=== PATIENT | male | born 1985 | race Caucasian/White ===

== ENCOUNTER 2017-07-16 02:27 | Outpatient (CLI) | payer MEDICAID | END 2017-07-16 02:28 | disposition EMS.NT | LOC: EMS 02:27 | PROVIDERS: ATTEND Surgery | DX: Z72.89 Other problems related to lifestyle (principal) ==

== ENCOUNTER 2017-10-13 12:42 | Outpatient (CLI) | payer MEDICAID | END 2017-10-13 12:43 | disposition critical access hospital (66) | LOC: EMS 12:42 | PROVIDERS: ATTEND Surgery | DX: R52 Pain, unspecified (principal); R11.2 Nausea with vomiting, unspecified; R19.7 Diarrhea, unspecified | CPT/HCPCS: A0425; A0427 ==

== ENCOUNTER 2017-10-13 13:04 | Emergency (ER) | payer MEDICAID ==
[2017-10-13] MEDS ORDERED: SODIUM CHLORIDE 0.9% 1,000 ML IV ONE ×2 (13:09→14:03)
[2017-10-13] MEDS ORDERED: LORazepam 2 MG/ML VIAL IVP STA ×2 (13:17→14:21)
[2017-10-13] MEDS ORDERED: KETOROLAC 60 MG/2 ML VIAL IVP STA (13:17)
--- NOTE | 2017-10-13 13:25 | ED Physician Documentation ---
History of Present Illness - Stated complaint Stated Complaint: WITHDRAWAL - Chief complaint Chief Complaint: General - History obtained from History obtained from: Patient, EMS - History of Present Illness Timing: Other (He has been using heroin and methamphetamines heavily for the last few months, he quit using 2 days ago and now has severe total body pain, some episodes of shaking and loose and incontinent bowels and chills.) Review of Systems Ten Systems: 10 systems reviewed and negative Constitutional: reports: Chills. denies: Fever Cardiac: reports: Chest pain / pressure Respiratory: denies: Dyspnea, Cough GI: reports: Abdominal Pain, Nausea, Diarrhea PD PAST MEDICAL HISTORY - Past Medical History Past Medical History: No Psych: Post traumatic stress disorder - Past Surgical History Past Surgical History: Yes General: Appendectomy Ortho: Other - Present Medications Home Medications: Ambulatory Orders Medication Instructions Recorded Confirmed Buprenorphine HCl/Naloxone HCl 16 mg ORAL DAILY 01/08/16 01/08/16 [Suboxone 8 mg-2 mg Sl Film] Ondansetron Odt [Zofran] 4 mg TL Q6H PRN #10 tablet 05/16/16 Prazosin [Minipress] 2 mg DAILY 05/16/16 05/16/16 - Allergies Allergies/Adverse Reactions: Allergies Allergy/AdvReac Type Severity Reaction Status Date / Time iodine Allergy Unknown Verified 05/16/16 10:55 venom-honey bee Allergy Unknown Verified 05/16/16 10:55 [bee venom (honey bee)] contrast Allergy Unknown Uncoded 01/08/16 17:57 - Social History Does the pt smoke?: Yes Smoking Status: Current every day smoker Does the pt drink ETOH?: No Does the pt have substance abuse?: No - Family History Family history: reports: Non contributory - Immunizations Immunizations are current?: Yes Immunizations: TDAP >10years/unknown - POLST Patient has POLST: No PD ED PE NORMAL - Vitals Vital signs reviewed: Yes - General General: Alert and oriented X 3, Other (He is cooperative, hypervigilant and writhing in pain) - HEENT HEENT: Other (Dilated pupils) - Neck Neck: Supple, no meningeal sign, No bony TTP - Cardiac Cardiac: RRR, No murmur - Respiratory Respiratory: No respiratory distress, Clear bilaterally - Abdomen Abdomen: Normal bowel sounds, Soft, Non tender - Back Back: No CVA TTP, No spinal TTP - Derm Derm: Normal color, Warm and dry - Neuro Neuro: Alert and oriented X 3 Eye Opening: Spontaneous Motor: Obeys Commands Verbal: Oriented GCS Score: 15 - Psych Psych: Normal mood, Normal affect Results - Vitals Vitals: Vital Signs - 24 hr 10/13/17 10/13/17 13:04 16:36 Temperature 36.9 C Heart Rate 96 74 Respiratory 24 16 Rate Blood Pressure 101/78 133/80 H O2 Saturation 100 100 Oxygen O2 Source Room air - Labs Labs: Laboratory Tests 10/13/17 10/13/17 10/13/17 13:14 13:34 13:39 WBC RBC Hgb Hct MCV MCH MCHC RDW Plt Count MPV Neut # Lymph # [place] # Eos # Baso # Absolute Nucleated RBC Nucleated RBC % Manual Slide Review RBC Morph Micro Appear Sodium 136 Potassium 2.4 L* Chloride 98 L Carbon Dioxide 24 Anion Gap 14.0 H BUN 9 Creatinine 0.9 Estimated GFR (MDRD) 98 Glucose 105 H Calcium 9.4 Magnesium 1.8 Urine Opiates Screen POSITIVE H Ur Oxycodone Screen NEGATIVE Urine Methadone Screen NEGATIVE Ur Propoxyphene Screen NEGATIVE Ur Barbiturates Screen NEGATIVE Ur Tricyclics Screen NEGATIVE Ur Phencyclidine Scrn NEGATIVE Ur Amphetamine Screen NEGATIVE U Methamphetamines Scrn NEGATIVE U Benzodiazepines Scrn NEGATIVE Urine Cocaine Screen NEGATIVE U Cannabinoids Screen POSITIVE H Ethyl Alcohol 10/13/17 10/13/17 10/13/17 13:39 13:39 16:53 WBC 21.4 H RBC 5.55 Hgb 15.3 Hct 45.4 MCV 81.7 MCH 27.6 MCHC 33.8 RDW 12.7 Plt Count 308 MPV 7.7 Neut # 16.6 H Lymph # 3.2 [place] # 1.5 H Eos # 0.0 Baso # 0.0 Absolute Nucleated RBC 0.00 Nucleated RBC % 0.0 Manual Slide Review Indicated RBC Morph Micro Appear 1+ ANISOCYTOSIS Sodium Potassium 3.5 Chloride Carbon Dioxide Anion Gap BUN Creatinine Estimated GFR (MDRD) Glucose Calcium Magnesium Urine Opiates Screen Ur Oxycodone Screen Urine Methadone Screen Ur Propoxyphene Screen Ur Barbiturates Screen Ur Tricyclics Screen Ur Phencyclidine Scrn Ur Amphetamine Screen U Methamphetamines Scrn U Benzodiazepines Scrn Urine Cocaine Screen U Cannabinoids Screen Ethyl Alcohol < 5.0 PD MEDICAL DECISION MAKING - ED course ED course: 32-year-old gentleman presents by ambulance in the flares of acute narcotic withdrawal. He was treated here with Ativan, Toradol, Bentyl, IV fluids. potassium was repleted aggressively and rechecked and back to normal. After meds he was much more comfortable appearing, was tolerating oral fluids and food. Social work saw him and gave him resources for outpatient detoxification. Departure - Departure Disposition: 01 Home, Self Care Clinical Impression: Heroin withdrawal, Dehydration, Hypokalemia
[2017-10-13] MEDS ORDERED: POTASSIUM CHLOR 10 MEQ/100 ML 10 MEQ/100 ML BAG IV ONE (13:54)
[2017-10-13] MEDS ORDERED: POTASSIUM BICARB 25 MEQ TABLET PO STA (13:54)
[2017-10-13 13:55] LABS: CALCIUM 9.4 mg/dL (8.5-10.3); CREATININE 0.9 mg/dL (0.6-1.2)
[2017-10-13] MEDS ORDERED: DICYCLOMINE 10 MG CAPSULE PO STA (14:21)
[2017-10-13 14:41] LABS: BASOPHILS % (AUTO) 0.2 %; EOSINOPHILS % (AUTO) 0.1 %; HGB - HEMOGLOBIN 15.3 g/dL (14.0-18.0); LYMPHOCYTES # (AUTO) 3.2 10^3/uL (1.5-3.5); LYMPHOCYTES % (AUTO) 15.1 %; MEAN CORPUSCULAR HEMOGLOBIN 27.6 pg (27.0-31.0); MEAN CORPUSCULAR HGB CONC 33.8 g/dL (32.0-36.0); MEAN CORPUSCULAR VOLUME 81.7 fL (80.0-94.0); MEAN PLATELET VOLUME 7.7 fL (7.4-11.4); MONOCYTES # (AUTO) 1.5 10^3/uL (0.0-1.0); NEUTROPHILS # (AUTO) 16.6 10^3/uL (1.5-6.6); NEUTROPHILS % (AUTO) 77.6 %; PLT - PLATELET COUNT 308 10^3/uL (130-450); RED BLOOD COUNT 5.55 10^6/uL (4.70-6.10); RED CELL DISTRIBUTION WIDTH 12.7 % (12.0-15.0); WHITE BLOOD COUNT 21.4 x10^3/uL (4.8-10.8)
[2017-10-13 14:55] LABS: RBC MORPHOLOGY (MULTIPLE) 1+ ANISOCYTOSIS (NORMAL)
[2017-10-13 16:07] LABS: MUDS CUTOFF CONCENTRATIONS CUTOFF CONC BELOW:
[2017-10-13 16:20] LABS: AMPHETAMINE SCREEN,URINE NEGATIVE (NEGATIVE); BENZODIAZEPINES SCREEN, URINE NEGATIVE (NEGATIVE); COCAINE SCREEN URINE NEGATIVE (NEGATIVE); METHADONE SCREEN, URINE NEGATIVE (NEGATIVE); METHAMPHETAMINES SCREEN, URINE NEGATIVE (NEGATIVE); OPIATE SCREEN, URINE POSITIVE (NEGATIVE); OXYCODONE SCREEN, URINE NEGATIVE (NEGATIVE); PROPOXYPHENE SCREEN, URINE NEGATIVE (NEGATIVE); TRICYCLIC ANTIDEPRESSANT,URINE NEGATIVE (NEGATIVE)
[2017-10-13 18:00] VITALS: BP 137/84
== END 2017-10-13 18:00 | disposition home or self-care (01) ==
LOC: EDUNIT# → ED 13:04
DX: F11.23 Opioid dependence with withdrawal (principal); E86.0 Dehydration; E87.6 Hypokalemia; F17.200 Nicotine dependence, unspecified, uncomplicated
CPT/HCPCS: 80048; 80306; 80320; 83735; 84132; 85025; 96361; 96365; 96366; 96375; 96376; 99283; 99284; A9270; J2060; 36415

== ENCOUNTER 2017-10-16 09:00 | Outpatient (CLI) | payer MEDICAID | END 2017-10-16 09:01 | disposition home or self-care (01) | LOC: LAB.N 09:00 | PROVIDERS: ATTEND Family Medicine | DX: F11.10 Opioid abuse, uncomplicated (principal); F11.93 Opioid use, unspecified with withdrawal; F15.10 Other stimulant abuse, uncomplicated | CPT/HCPCS: 36415; 80053; 80306; 84443; 85025; 86317; 86704; 86709; 86803; 87340; 87389 ==

== ENCOUNTER 2017-12-23 21:36 | Emergency (ER) | payer MEDICAID ==
--- NOTE | 2017-12-23 22:38 | ED Physician Documentation ---
History of Present Illness - Stated complaint Stated Complaint: Wants detox - Chief complaint Chief Complaint: MHE - History obtained from History obtained from: Patient - History of Present Illness Timing: Unknown - Additonal information Additional information: Per internet application developer, patient presents requesting detox from heroin and methamphetamines. By the time of my evaluation, patient is somnolent and cannot provide any contribution to HPI/ROS Review of Systems Unable to obtain: Other (UNABLE TO PROVIDE ROS ANSWERS ON INITIAL EXAM. THE ROS BELOW WAS OBTAINED TOWARDS THE END OF ED STAY WHEN PATIENT HAD BECOME AWAKE, ALERT, AND ORIENTED X 3) Constitutional: reports: Myalgias. denies: Fever Cardiac: reports: Reviewed and negative Respiratory: reports: Reviewed and negative GI: reports: Reviewed and negative Neurologic: denies: Headache PD PAST MEDICAL HISTORY - Past Medical History Psych: Post traumatic stress disorder - Past Surgical History Past Surgical History: Yes General: Appendectomy Ortho: Shoulder arthroplasty, Other - Present Medications Home Medications: Ambulatory Orders Medication Instructions Recorded Confirmed No Known Home Medications [No 12/23/17 12/23/17 Known Home Medications] - Allergies Allergies/Adverse Reactions: Allergies Allergy/AdvReac Type Severity Reaction Status Date / Time iodine Allergy Unknown Verified 12/23/17 21:47 venom-honey bee Allergy Unknown Verified 12/23/17 21:47 [bee venom (honey bee)] contrast Allergy Unknown Uncoded 12/23/17 21:47 - Social History Does the pt smoke?: Yes Smoking Status: Current every day smoker Does the pt drink ETOH?: No Does the pt have substance abuse?: Yes Substance Use and Type: Marijuana, Meth, Heroin - Immunizations Immunizations are current?: Yes Immunizations: TDAP >10years/unknown - POLST Patient has POLST: No PD ED PE NORMAL - Vitals Vital signs reviewed: Yes - HEENT HEENT: Moist mucous membranes - Neck Neck: Supple, no meningeal sign - Cardiac Cardiac: RRR, No murmur - Respiratory Respiratory: No respiratory distress, Clear bilaterally - Abdomen Abdomen: Soft, Non tender, Non distended - Derm Derm: Normal color, Warm and dry - Extremities Extremities: No edema - Neuro Eye Opening: To Pain Motor: Localizes to Pain Verbal: Incomprehensible GCS Score: 9 PD ED PE EXPANDED - General General: Lethargic - HEENT HEENT: Other (dilated pupils bilaterally but equal and reactive) Results - Vitals Vitals: Vital Signs - 24 hr 12/23/17 12/24/17 12/24/17 21:41 01:12 03:58 Temperature 36.6 C 36.3 C L Heart Rate 106 H 83 72 Respiratory 22 16 18 Rate Blood Pressure 124/83 H 141/83 H 117/71 O2 Saturation 99 99 100 12/24/17 09:02 Temperature 36.7 C Heart Rate 79 Respiratory 14 Rate Blood Pressure 127/82 H O2 Saturation 100 Oxygen O2 Source Room air - Labs Labs: Laboratory Tests 12/23/17 12/23/17 12/24/17 22:20 22:40 05:43 WBC 11.2 H RBC 5.02 Hgb 14.3 Hct 43.0 MCV 85.6 MCH 28.5 MCHC 33.3 RDW 13.1 Plt Count 267 MPV 7.1 L Neut # (Auto) 8.7 H Lymph # (Auto) 1.8 [place] # (Auto) 0.6 Eos # (Auto) 0.1 Baso # (Auto) 0.0 Absolute Nucleated RBC 0.01 Nucleated RBC % 0.0 Sodium 135 Potassium 3.9 Chloride 103 Carbon Dioxide 24 Anion Gap 8.0 BUN 9 Creatinine 0.7 Estimated GFR (MDRD) 132 Glucose 101 H Calcium 9.4 Total Bilirubin 0.7 AST 19 ALT 19 Alkaline Phosphatase 73 Total Protein 7.6 Albumin 4.4 Globulin 3.2 Albumin/Globulin Ratio 1.4 Lipase 21 L Urine Color YELLOW Urine Clarity CLEAR Urine pH 7.5 Ur Specific [place] 1.015 Urine Protein NEGATIVE Urine Glucose (UA) NEGATIVE Urine Ketones NEGATIVE Urine Occult Blood NEGATIVE Urine Nitrite NEGATIVE Urine Bilirubin NEGATIVE Urine Urobilinogen 0.2 (NORMAL) Ur Leukocyte Esterase NEGATIVE Ur Microscopic Review NOT INDICATED Urine Culture Comments NOT INDICATED Salicylates < 6.0 Urine Opiates Screen NEGATIVE Ur Oxycodone Screen NEGATIVE Urine Methadone Screen NEGATIVE Ur Propoxyphene Screen NEGATIVE Acetaminophen < 10 L Ur Barbiturates Screen NEGATIVE Ur Tricyclics Screen NEGATIVE Ur Phencyclidine Scrn NEGATIVE Ur Amphetamine Screen POSITIVE H U Methamphetamines Scrn NEGATIVE U Benzodiazepines Scrn NEGATIVE Urine Cocaine Screen NEGATIVE U Cannabinoids Screen POSITIVE H Ethyl Alcohol < 5.0 PD MEDICAL DECISION MAKING - ED course Complexity details: reviewed old records, reviewed results, re-evaluated patient , considered differential, d/w patient ED course: On my initial evaluation of patient, he was somnolent and could not stay awake long enough to provide any contribution to HPI/ROS. He did not follow any commands. He had brief episodes, lasting less than one minute, when he would suddenly appear agitated and uncomfortable, but he would rapidly fall back asleep. Early in his ED stay, he told me he was "seeing things that aren't there ", but could not stay awake long enough to elaborate. He remained somnolent for most of ED stay, but after approximately 8 hours, I was able to wake him up and he was oriented x 3 and answered questions intelligibly and accurately. His pupils are normal size (no longer dilated) and equal and reactive. He tells me he drove to ED. He says he last used both heroin and methamphetamines approximately 24 hours ago (this discussion was at 7 AM , 12/24/17). He tells me that he wants to get into a detox program at this time. SW consulted and they were able to arrange for intake at [facility] in [place]. I then discussed the case with staff (Ankush) at [facility], he requests that I call prescriptions to [facility] in [place]. As per our discussion, I called in prescriptions for trazadone 50mg 1 tablet PO QHS PRN sleep, hydroxyzine 25 mg 1-2 tablets PO Q8 hours, and lorazepam taper 1mg Day 1: 1 tab PO Q6 hours, day 2: 1 tab PO Q8 hours, Day 3: 1 tab PO Q 12 hours. Patient's mother to drive him to the crisis center in [place]. Patient did not request nor require any medications during ED stay. He was in NAD during ED stay except for the brief period of appearing uncomfortable as noted above (he only had these episodes while he was somnolent) - Sepsis Event Vital Signs: Vital Signs - 24 hr 12/23/17 12/24/17 12/24/17 21:41 01:12 03:58 Temperature 36.6 C 36.3 C L Heart Rate 106 H 83 72 Respiratory 22 16 18 Rate Blood Pressure 124/83 H 141/83 H 117/71 O2 Saturation 99 99 100 12/24/17 09:02 Temperature 36.7 C Heart Rate 79 Respiratory 14 Rate Blood Pressure 127/82 H O2 Saturation 100 Oxygen O2 Source Room air Departure - Departure Disposition: 01 Home, Self Care Clinical Impression: Substance abuse Condition: Good Instructions: ED Drug Abuse General Comments: You are to go directly from this emergency department to the [facility] in [place], [place]. [address] [place] [address] Medications have been called in to the pharmacy, and these will be filled by staff from the Crisis Center and dispensed to you as prescribed.
[2017-12-23 22:43] LABS: ALBUMIN 4.4 g/dL (3.2-5.5); ALBUMIN/GLOBULIN RATIO 1.4 (1.0-2.2); ALKALINE PHOSPHATASE 73 IU/L (42-121); ALT ALANINE AMINOTRANSFERASE 19 IU/L (10-60); AST ASPARTATE AMINOTRANSFERASE 19 IU/L (10-42); BILIRUBIN,TOTAL 0.7 mg/dL (0.2-1.0); BUN - BLOOD UREA NITROGEN 9 mg/dL (6-20); CALCIUM 9.4 mg/dL (8.5-10.3); CARBON DIOXIDE - CO2 24 mmol/L (21-32); CHLORIDE 103 mmol/L (101-111); CREATININE 0.7 mg/dL (0.6-1.2); GFR - MDRD 132 (>89); GLUCOSE 101 mg/dL (70-100); LIPASE 21 U/L (22-51); SALICYLATE < 6.0 mg/dL; SODIUM 135 mmol/L (135-145); TOTAL PROTEIN 7.6 g/dL (6.7-8.2)
[2017-12-23 22:47] LABS: BASOPHILS % (AUTO) 0.4 %; EOSINOPHILS # (AUTO) 0.1 10^3/uL (0.0-0.7); EOSINOPHILS % (AUTO) 0.9 %; HGB - HEMOGLOBIN 14.3 g/dL (14.0-18.0); LYMPHOCYTES # (AUTO) 1.8 10^3/uL (1.5-3.5); LYMPHOCYTES % (AUTO) 15.6 %; MEAN CORPUSCULAR HEMOGLOBIN 28.5 pg (27.0-31.0); MEAN CORPUSCULAR HGB CONC 33.3 g/dL (32.0-36.0); MEAN CORPUSCULAR VOLUME 85.6 fL (80.0-94.0); MEAN PLATELET VOLUME 7.1 fL (7.4-11.4); MONOCYTES # (AUTO) 0.6 10^3/uL (0.0-1.0); MONOCYTES % (AUTO) 5.5 %; NEUTROPHILS # (AUTO) 8.7 10^3/uL (1.5-6.6); NEUTROPHILS % (AUTO) 77.6 %; PLT - PLATELET COUNT 267 10^3/uL (130-450); RED BLOOD COUNT 5.02 10^6/uL (4.70-6.10); RED CELL DISTRIBUTION WIDTH 13.1 % (12.0-15.0); WHITE BLOOD COUNT 11.2 x10^3/uL (4.8-10.8)
[2017-12-23 22:52] LABS: ACETAMINOPHEN < 10 ug/mL (10-30)
[2017-12-24 05:49] LABS: MUDS CUTOFF CONCENTRATIONS CUTOFF CONC BELOW:
[2017-12-24 05:53] LABS: BILIRUBIN,URINE NEGATIVE (NEGATIVE); GLUCOSE, URINE (UA) NEGATIVE (NEGATIVE); KETONES,URINE (UA) NEGATIVE (NEGATIVE); LEUKOCYTE ESTERASE, URINE NEGATIVE (NEGATIVE); NITRITE,URINE NEGATIVE (NEGATIVE); OCCULT BLOOD,URINE NEGATIVE (NEGATIVE); PH,URINE 7.5 PH (5.0-7.5); PROTEIN,URINE NEGATIVE (NEGATIVE); UROBILINOGEN,URINE 0.2 (NORMAL) E.U./dL (NORMAL)
[2017-12-24 05:55] LABS: CLARITY,URINE CLEAR (CLEAR)
[2017-12-24 06:06] LABS: AMPHETAMINE SCREEN,URINE POSITIVE (NEGATIVE); BENZODIAZEPINES SCREEN, URINE NEGATIVE (NEGATIVE); COCAINE SCREEN URINE NEGATIVE (NEGATIVE); METHADONE SCREEN, URINE NEGATIVE (NEGATIVE); METHAMPHETAMINES SCREEN, URINE NEGATIVE (NEGATIVE); OPIATE SCREEN, URINE NEGATIVE (NEGATIVE); OXYCODONE SCREEN, URINE NEGATIVE (NEGATIVE); PROPOXYPHENE SCREEN, URINE NEGATIVE (NEGATIVE); TRICYCLIC ANTIDEPRESSANT,URINE NEGATIVE (NEGATIVE)
[2017-12-24 09:03] VITALS: BP 127/82
== END 2017-12-24 09:19 | disposition home or self-care (01) ==
LOC: ED 21:36
DX: F15.10 Other stimulant abuse, uncomplicated (principal); F11.10 Opioid abuse, uncomplicated; F43.10 Post-traumatic stress disorder, unspecified; R44.0 Auditory hallucinations; M79.1 Myalgia; F17.200 Nicotine dependence, unspecified, uncomplicated; R53.83 Other fatigue
CPT/HCPCS: 36415; 80053; 80306; 80307; 80320; 80329; 81001; 81003; 83690; 84703; 85025; 87086; 99283; 99285

== ENCOUNTER 2018-02-13 12:16 | Emergency (ER) | payer MEDICAID ==
[2018-02-13] MEDS ORDERED: SODIUM CHLORIDE 0.9% 1,000 ML IV ONE (12:44)
[2018-02-13 13:51] LABS: BASOPHILS # (AUTO) 0.1 10^3/uL (0.0-0.1); BASOPHILS % (AUTO) 0.5 %; EOSINOPHILS # (AUTO) 0.1 10^3/uL (0.0-0.7); EOSINOPHILS % (AUTO) 0.7 %; HGB - HEMOGLOBIN 15.9 g/dL (14.0-18.0); LYMPHOCYTES # (AUTO) 2.8 10^3/uL (1.5-3.5); LYMPHOCYTES % (AUTO) 22.5 %; MEAN CORPUSCULAR HEMOGLOBIN 28.5 pg (27.0-31.0); MEAN CORPUSCULAR VOLUME 83.8 fL (80.0-94.0); MEAN PLATELET VOLUME 7.3 fL (7.4-11.4); MONOCYTES # (AUTO) 0.9 10^3/uL (0.0-1.0); MONOCYTES % (AUTO) 7.2 %; NEUTROPHILS # (AUTO) 8.5 10^3/uL (1.5-6.6); NEUTROPHILS % (AUTO) 69.1 %; PLT - PLATELET COUNT 273 10^3/uL (130-450); RED CELL DISTRIBUTION WIDTH 13.2 % (12.0-15.0); WHITE BLOOD COUNT 12.3 x10^3/uL (4.8-10.8)
[2018-02-13] MEDS ORDERED: LORazepam 2 MG/ML VIAL IVP STA (14:01)
[2018-02-13 14:07] LABS: ALBUMIN 4.2 g/dL (3.2-5.5); ALBUMIN/GLOBULIN RATIO 1.3 (1.0-2.2); BILIRUBIN,TOTAL 0.7 mg/dL (0.2-1.0); CALCIUM 9.1 mg/dL (8.5-10.3); CREATININE 0.7 mg/dL (0.6-1.2); MAGNESIUM 2.2 mg/dL (1.7-2.8); PHOSPHORUS 2.6 mg/dL (2.5-4.6); TOTAL PROTEIN 7.5 g/dL (6.7-8.2)
--- NOTE | 2018-02-13 14:10 | ED Physician Documentation ---
History of Present Illness - Stated complaint Stated Complaint: WEAKNESS,MUSCLE TWITCHING - Chief complaint Chief Complaint: General - History obtained from History obtained from: Patient - History of Present Illness Timing: How many days ago (2) - Additonal information Additional information: 32-year-old male with a history of substance abuse has recently been into detoxification and rehab. He got out of rehab on 16 January and immediately relapsed. The patient states that his girlfriend left after he relapsed and he is now living in a trailer in a friend's yard that he met [place]. He is using heroin and methamphetamine about half a gram per day and somewhat less than that of heroin. He last used 2 days ago and he has developed symptoms of withdrawal. He has had withdrawal symptoms a number of times previously and he reports he is unable to eat or drink anything currently. He is interested in detox and rehabilitation. Review of Systems Constitutional: reports: Chills, Myalgias, Fatigue, Sweats. denies: Fever Eyes: denies: Decreased vision Ears: denies: Ear pain Nose: denies: Rhinorrhea / runny nose, Congestion Throat: denies: Sore throat Cardiac: denies: Chest pain / pressure, Palpitations Respiratory: denies: Dyspnea, Cough GI: reports: Abdominal Pain, Nausea, Vomiting, Diarrhea : denies: Dysuria, Frequency Skin: denies: Rash Musculoskeletal: reports: Extremity pain. denies: Neck pain, Back pain Neurologic: reports: Generalized weakness. denies: Focal weakness, Numbness PD PAST MEDICAL HISTORY - Past Medical History Past Medical History: Yes Psych: Post traumatic stress disorder - Past Surgical History Past Surgical History: Yes General: Appendectomy Ortho: Shoulder arthroplasty, Other - Present Medications Home Medications: Ambulatory Orders Medication Instructions Recorded Confirmed Lorazepam [Ativan] 1 mg PO Q6HR PRN #20 tablet 02/13/18 hydrOXYzine pamoate [Hydroxyzine 25 - 50 mg PO Q8HR PRN #20 capsule 02/13/18 Pamoate] traZODone [Desyrel] 50 mg PO HS #10 tablet 02/13/18 - Allergies Allergies/Adverse Reactions: Allergies Allergy/AdvReac Type Severity Reaction Status Date / Time iodine Allergy Unknown Verified 12/23/17 21:47 venom-honey bee Allergy Unknown Verified 12/23/17 21:47 [bee venom (honey bee)] contrast Allergy Unknown Uncoded 12/23/17 21:47 - Social History Does the pt smoke?: Yes Smoking Status: Current every day smoker Does the pt drink ETOH?: No Does the pt have substance abuse?: Yes - Immunizations Immunizations are current?: Yes Immunizations: TDAP >10years/unknown - POLST Patient has POLST: No PD ED PE NORMAL - Vitals Vital signs reviewed: Yes (normal ) - General General: Alert and oriented X 3, Well developed/nourished, Other (The patient is shaking but able to communicate adequately. He does not appear acutely intoxicated. ) - HEENT HEENT: Atraumatic, PERRL, EOMI - Neck Neck: Supple, no meningeal sign, No bony TTP - Cardiac Cardiac: RRR, No murmur - Respiratory Respiratory: No respiratory distress, Clear bilaterally - Abdomen Abdomen: Soft, Non tender - Derm Derm: Normal color, Warm and dry, No rash - Extremities Extremities: No deformity, No edema, Other (There are track soriano over the left forearm and the veins are hard/sclerosed. ) - Neuro Neuro: Alert and oriented X 3, equity director 2-12 intact, No motor deficit, No sensory deficit, Normal speech Eye Opening: Spontaneous Motor: Obeys Commands Verbal: Oriented GCS Score: 15 - Psych Psych: Normal mood, Normal affect Results - Vitals Vitals: Oxygen O2 Source Room air - Labs Labs: Laboratory Tests 02/13/18 02/13/18 02/13/18 13:45 13:45 13:45 WBC 12.3 H RBC 5.60 Hgb 15.9 Hct 46.9 MCV 83.8 MCH 28.5 MCHC 34.0 RDW 13.2 Plt Count 273 MPV 7.3 L Neut # (Auto) 8.5 H Lymph # (Auto) 2.8 [place] # (Auto) 0.9 Eos # (Auto) 0.1 Baso # (Auto) 0.1 Absolute Nucleated RBC 0.00 Nucleated RBC % 0.0 Sodium 139 Potassium 3.9 Chloride 107 Carbon Dioxide 24 Anion Gap 8.0 BUN 9 Creatinine 0.7 Estimated GFR (MDRD) 132 Glucose 88 Calcium 9.1 Phosphorus 2.6 Magnesium 2.2 Total Bilirubin 0.7 AST 17 ALT 15 Alkaline Phosphatase 66 Total Protein 7.5 Albumin 4.2 Globulin 3.3 Albumin/Globulin Ratio 1.3 Lipase 42 Urine Color Urine Clarity Urine pH Ur Specific [place] Urine Protein Urine Glucose (UA) Urine Ketones Urine Occult Blood Urine Nitrite Urine Bilirubin Urine Urobilinogen Ur Leukocyte Esterase Ur Microscopic Review Urine Culture Comments Urine Opiates Screen Ur Oxycodone Screen Urine Methadone Screen Ur Propoxyphene Screen Ur Barbiturates Screen Ur Tricyclics Screen Ur Phencyclidine Scrn Ur Amphetamine Screen U Methamphetamines Scrn U Benzodiazepines Scrn Urine Cocaine Screen U Cannabinoids Screen Ethyl Alcohol 02/13/18 02/13/18 13:45 15:45 WBC RBC Hgb Hct MCV MCH MCHC RDW Plt Count MPV Neut # (Auto) Lymph # (Auto) [place] # (Auto) Eos # (Auto) Baso # (Auto) Absolute Nucleated RBC Nucleated RBC % Sodium Potassium Chloride Carbon Dioxide Anion Gap BUN Creatinine Estimated GFR (MDRD) Glucose Calcium Phosphorus Magnesium Total Bilirubin AST ALT Alkaline Phosphatase Total Protein Albumin Globulin Albumin/Globulin Ratio Lipase Urine Color YELLOW Urine Clarity CLEAR Urine pH 8.0 H Ur Specific [place] 1.020 Urine Protein NEGATIVE Urine Glucose (UA) NEGATIVE Urine Ketones NEGATIVE Urine Occult Blood NEGATIVE Urine Nitrite NEGATIVE Urine Bilirubin NEGATIVE Urine Urobilinogen 0.2 (NORMAL) Ur Leukocyte Esterase NEGATIVE Ur Microscopic Review NOT INDICATED Urine Culture Comments NOT INDICATED Urine Opiates Screen NEGATIVE Ur Oxycodone Screen NEGATIVE Urine Methadone Screen NEGATIVE Ur Propoxyphene Screen NEGATIVE Ur Barbiturates Screen NEGATIVE Ur Tricyclics Screen NEGATIVE Ur Phencyclidine Scrn NEGATIVE Ur Amphetamine Screen NEGATIVE U Methamphetamines Scrn POSITIVE H U Benzodiazepines Scrn NEGATIVE Urine Cocaine Screen NEGATIVE U Cannabinoids Screen POSITIVE H Ethyl Alcohol < 5.0 PD MEDICAL DECISION MAKING - ED course Complexity details: reviewed old records, reviewed results, re-evaluated patient , considered differential, d/w patient ED course: 32-year-old male with a history of substance abuse has relapsed and is now withdrawing and asking for help. He has been relapsed for about 3 weeks and I suspect his withdrawal symptoms will be shorter. He is administered Ativan a milligram intravenously and a liter of saline. He is seeking treatment and the social services manager is working on a bed at [facility]. At shift end Dr. Chi will be providing final disposition. - Sepsis Event Vital Signs: Oxygen O2 Source Room air Departure - Departure Disposition: 01 Home, Self Care Clinical Impression: Substance abuse, Heroin withdrawal Condition: Stable Instructions: ED Drug Abuse General, ED Withdrawal Narcotic Prescriptions: Lorazepam [Ativan] 1 mg PO Q6HR PRN #20 tablet PRN Reason: withdrawal symptoms hydrOXYzine pamoate [Hydroxyzine Pamoate] 25 - 50 mg PO Q8HR PRN #20 capsule PRN Reason: Anxiety traZODone [Desyrel] 50 mg PO HS #10 tablet Discharge Date/Time: 02/13/18 19:37
[2018-02-13 15:56] LABS: MUDS CUTOFF CONCENTRATIONS CUTOFF CONC BELOW:
[2018-02-13 16:02] LABS: BILIRUBIN,URINE NEGATIVE (NEGATIVE); GLUCOSE, URINE (UA) NEGATIVE (NEGATIVE); KETONES,URINE (UA) NEGATIVE (NEGATIVE); LEUKOCYTE ESTERASE, URINE NEGATIVE (NEGATIVE); NITRITE,URINE NEGATIVE (NEGATIVE); OCCULT BLOOD,URINE NEGATIVE (NEGATIVE); PROTEIN,URINE NEGATIVE (NEGATIVE); UROBILINOGEN,URINE 0.2 (NORMAL) E.U./dL (NORMAL)
[2018-02-13 16:07] LABS: CLARITY,URINE CLEAR (CLEAR)
[2018-02-13 16:25] LABS: AMPHETAMINE SCREEN,URINE NEGATIVE (NEGATIVE); BENZODIAZEPINES SCREEN, URINE NEGATIVE (NEGATIVE); COCAINE SCREEN URINE NEGATIVE (NEGATIVE); METHADONE SCREEN, URINE NEGATIVE (NEGATIVE); METHAMPHETAMINES SCREEN, URINE POSITIVE (NEGATIVE); OPIATE SCREEN, URINE NEGATIVE (NEGATIVE); OXYCODONE SCREEN, URINE NEGATIVE (NEGATIVE); PROPOXYPHENE SCREEN, URINE NEGATIVE (NEGATIVE); TRICYCLIC ANTIDEPRESSANT,URINE NEGATIVE (NEGATIVE)
[2018-02-13] MEDS ORDERED: LORazepam 0.5 MG TABLET PO STA (18:21)
[2018-02-13 19:35] VITALS: BP 116/87
--- NOTE | 2018-02-24 23:22 | ED Physician Documentation ---
ED Addendum - Addendum Addendum: Pt discharged to [facility] per HERMINIA. Rx written by Dr. Huitron Departure - Departure Disposition: 01 Home, Self Care Clinical Impression: Substance abuse, Heroin withdrawal Condition: Stable Instructions: ED Drug Abuse General, ED Withdrawal Narcotic Prescriptions: Lorazepam [Ativan] 1 mg PO Q6HR PRN #20 tablet PRN Reason: withdrawal symptoms hydrOXYzine pamoate [Hydroxyzine Pamoate] 25 - 50 mg PO Q8HR PRN #20 capsule PRN Reason: Anxiety traZODone [Desyrel] 50 mg PO HS #10 tablet Discharge Date/Time: 02/13/18 19:37
== END 2018-02-13 19:37 | disposition home or self-care (01) ==
LOC: ED 12:16
DX: F11.23 Opioid dependence with withdrawal (principal); F17.200 Nicotine dependence, unspecified, uncomplicated
CPT/HCPCS: 36415; 80053; 80306; 80320; 81003; 83690; 83735; 84100; 85025; 96361; 96374; 99283; 99284; A9270; J2060; 81001; 87086